=== PATIENT | male | born 1965 | race Caucasian/White ===

== ENCOUNTER 2017-12-07 22:52 | Emergency (ER) | END 2017-12-07 23:24 | disposition left against medical advice (07) ==

== ENCOUNTER 2018-03-26 17:48 | Emergency (ER) | END 2018-03-26 20:00 | disposition home or self-care (01) ==

== ENCOUNTER 2018-07-19 18:43 | Emergency (ER) | END 2018-07-20 01:56 | disposition home or self-care (01) ==

== ENCOUNTER 2018-12-05 11:26 | Emergency (ER) | payer MEDICAID ==
[~2018-12-05] VITALS: Ht 157.5 cm; Wt 92.4 kg
[2018-12-05 11:31] VITALS: Ht 157.5 cm; Wt 92.4 kg
--- NOTE | 2018-12-05 12:27 | ERD ---
ER Documentation Chief Complaint Chief Complaint FELT DIZZY WHEN DRIVING; BILATERAL EAR RINGING HPI 53-year-old male, with history of anxiety and hypertension, presents to the emergency department, complaining of acute onset of dizziness, described as things spinning around, associated with nausea and bilateral ear ringing. The symptoms started 2 days ago. He denies chest pain, no shortness of breath, no blurred vision, no facial weakness, no distal numbness or tingling. ROS All systems reviewed and are negative except as per history of present illness. Medications Home Meds Active Scripts Ondansetron Hcl* (Zofran*) 4 Mg Tablet, 4 MG PO Q8H PRN for NAUSEA AND/OR VOMIT ING, #15 TAB Prov:FITO WATERMAN MD 12/05/18 Hydrochlorothiazide* (Hydrochlorothiazide*) 25 Mg Tab, 12.5 MG PO DAILY, #30 TAB Prov:FITO WATERMAN MD 12/05/18 Allergies Allergies: Coded Allergies: No Known Drug Allergy (Verified Allergy, Mild, 03/26/18) PMhx/Soc The patient reports history of anxiety and hypertension History of Surgery: No Anesthesia Reaction: No Hx Neurological Disorder: No Hx Respiratory Disorders: No Hx Cardiac Disorders: No Hx Psychiatric Problems: No Hx Miscellaneous Medical Probl: No Hx Alcohol Use: No Hx Substance Use: No Hx Tobacco Use: No FmHx Family History: diabetes Physical Exam Vitals Vital Signs Date Temp Pulse Resp B/P (MAP) Pulse Ox O2 O2 Flow FiO2 Time Delivery Rate 12/05/18 97.6 86 18 153/108 96 11:31 (123) Physical Exam Const: No acute distress Head: Atraumatic Eyes: Normal Conjunctiva ENT: Normal External Ears, Nose and Mouth. Neck: Full range of motion. No meningismus. Resp: Clear to auscultation bilaterally Cardio: Regular rate and rhythm, no murmurs Abd: Soft, non tender, non distended. Normal bowel sounds Skin: No petechiae or rashes Back: No midline or flank tenderness Ext: No cyanosis, or edema Neur: Awake and alert Psych: Normal Mood and Affect Result Diagram: 12/05/18 1246 12/05/18 1246 Results 24 hrs Laboratory Tests Test 12/05/18 12:46 White Blood Count 6.9 10^3/ul Red Blood Count 5.49 10^6/ul Hemoglobin 14.3 g/dl Hematocrit 43.7 % Mean Corpuscular Volume 79.6 fl Mean Corpuscular Hemoglobin 26.0 pg Mean Corpuscular Hemoglobin Concent 32.7 g/dl Red Cell Distribution Width 12.7 % Platelet Count 236 10^3/UL Mean Platelet Volume 10.5 fl Immature Granulocytes % 0.400 % Neutrophils % 57.3 % Lymphocytes % 30.2 % Monocytes % 9.2 % Eosinophils % 2.2 % Basophils % 0.7 % Nucleated Red Blood Cells % 0.0 /100WBC Immature Granulocytes # 0.030 10^3/ul Neutrophils # 4.0 10^3/ul Lymphocytes # 2.1 10^3/ul Monocytes # 0.6 10^3/ul Eosinophils # 0.2 10^3/ul Basophils # 0.1 10^3/ul Nucleated Red Blood Cells # 0.0 10^3/ul Sodium Level 141 mmol/L Potassium Level 4.1 mmol/L Chloride Level 104 mmol/L Carbon Dioxide Level 28 mmol/L Anion Gap 9 Blood Urea Nitrogen 13 mg/dl Creatinine 0.76 mg/dl Est Glomerular Filtrat Rate mL/min > 60 mL/min Glucose Level 155 mg/dl Calcium Level 9.1 mg/dl EKG read by me: Rate/Rhythm: Regular rate and rhythm at a rate of 72 Intervals: Normal No acute ST changes. No T wave inversion Impression: No evidence of acute ischemia or arrhythmia Procedures/MDM Vital signs stable, neurovascular exam revealed horizontal nystagmus while the patient was looking straight ahead with mildly abnormal head impulse test. Differential diagnosis include but not limited to dehydration, cardiac arrhythmia, , Mnire's disease, vestibular neuronitis, migraine, vertigo, side effects of the medications, hypoglycemia. Less likely but is still a possibility, intracranial hemorrhage, ischemic stroke, [employer] neoplasm. Pertinent Data: 12 Lead ECG: Sinus rhythm, no ST changes, normal T wave, normal intervals Labs: CBC: normal, BMP: normal kidney function, normal electrolytes. Glucose: normal CT head: Normal Physical examination and clinical presentation consistent most likely with positional vertigo and hypertension. During the ED course the patient remained stable, no new complaints. Results and clinical impression discussed with patient who agrees with management. The patient is stable to be treated outpatient and will be discharged home with instructions to follow up with the primary care provider in the next 48h. If symptoms persist, worsen or new symptoms develop, then patient should return to the ED immediately. Instructions explained and given directly by me to the patient with acknowledgment and demonstrated understanding. Disclaimer: Inadvertent spelling and grammatical errors are likely due to EHR/dictation software use and do not reflect on the overall quality of patient care. Also, please note that the electronic time recorded on this note does not necessarily reflect the actual time of the patient encounter. Departure Diagnosis: Primary Impression: Dizziness Additional Impressions: Positional vertigo Hypertension Condition: Stable Patient Instructions: Possible Causes of Dizziness or Fainting Additional Instructions: Thank you very much for allowing us to participate in your care. Your health and safety is our top priority at [facility]. The evaluation in the emergency department has been done to rule out an acute emergency, therefore, chronic conditions like malignancy or other diseases have not been evaluated; therefore, you need to follow up with a primary care provider in the next 48h. If symptoms persist, worsen or new symptoms develop, then patient should return to the ED immediately. Call your primary care doctor TOMORROW for an appointment during the next 2-4 days and bring all the information provided. Have prescriptions filled and follow precisely the directions on the label. If the symptoms get worse and your provider is unavailable, return to the Emerg ency Department immediately. FITO WATERMAN MD December 05, 2018 12:27
[2018-12-05] MEDS ORDERED: HYDR25TA6 PO (12:42)
[2018-12-05] MEDS ORDERED: ONDA4TAB8 PO (12:43)
[2018-12-05 14:18] VITALS: BP 137/91; PULSE 76; RESP 19
== END 2018-12-05 14:19 | disposition home or self-care (01) ==
LOC: FTE 11:26
DX: I10 Essential (primary) hypertension (principal); R11.0 Nausea
CPT/HCPCS: 70450; 80048; 85025; 93005; Z7502

== ENCOUNTER 2019-01-06 18:29 | Emergency (ER) | payer MEDICAID ==
[~2019-01-06] VITALS: Ht 157.5 cm; Wt 90.9 kg
[~2019-01-06 18:29] MED LIST: HYDR25TA6 PO; ONDA4TAB8 PO
[2019-01-06 18:30] VITALS: BP 148/95; PULSE 85; RESP 18; Ht 157.5 cm; Wt 90.9 kg
[2019-01-06] MEDS ORDERED: HYDR25TA6 PO (19:41)
--- NOTE | 2019-01-06 19:44 | ERD ---
ER Documentation Chief Complaint Chief Complaint MED REFILL, HTN MEDS HPI 53-year-old male presents with a history of hypertension. He was recently initiated treatment with 1 month ago after an episode of anxiety and noted to have elevated blood pressure. He states he feels much better while taking hydrochlorothiazide. He denies chest pain, shortness of breath, deficits, additional complaints. He does not have a primary doctor is requesting a refill of his hydrochlorothiazide. ROS All systems reviewed and are negative except as per history of present illness. Medications Home Meds Active Scripts Hydrochlorothiazide* (Hydrochlorothiazide*) 25 Mg Tab, 25 MG PO DAILY, #90 TAB Prov:PHUC WELSH MD 01/06/19 Ondansetron Hcl* (Zofran*) 4 Mg Tablet, 4 MG PO Q8H PRN for NAUSEA AND/OR VOMITING, #15 TAB Prov:FITO WATERMAN MD 12/05/18 Hydrochlorothiazide* (Hydrochlorothiazide*) 25 Mg Tab, 12.5 MG PO DAILY, #30 TAB Prov:FITO WATERMAN MD 12/05/18 Allergies Allergies: Coded Allergies: No Known Drug Allergy (Verified Allergy, Mild, 03/26/18) PMhx/Soc History of Surgery: No Anesthesia Reaction: No Hx Neurological Disorder: No Hx Respiratory Disorders: No Hx Cardiac Disorders: Yes (htn) Hx Psychiatric Problems: No Hx Miscellaneous Medical Probl: Yes (PRE DIABETIC) Hx Alcohol Use: No Hx Substance Use: No Hx Tobacco Use: No Smoking Status: Never smoker FmHx Family History: No diabetes, No coronary disease, No other Physical Exam Vitals Vital Signs Date Temp Pulse Resp B/P (MAP) Pulse Ox O2 O2 Flow FiO2 Time Delivery Rate 01/06/19 97.9 85 18 148/95 97 18:30 (112) Physical Exam Const: No acute distress Head: Atraumatic Eyes: Normal Conjunctiva ENT: Normal External Ears, Nose and Mouth. Neck: Full range of motion. No meningismus. Resp: Clear to auscultation bilaterally Cardio: Regular rate and rhythm, no murmurs Abd: Soft, non tender, non distended. Normal bowel sounds Skin: No petechiae or rashes Back: No midline or flank tenderness Ext: No cyanosis, or edema Neur: Awake and alert Psych: Normal Mood and Affect Procedures/MDM Patient presents with a history of hypertension. He feels improved and states that his home readings are much better with hydrochlorothiazide. He will be referred for primary care follow-up. We will give him a refill until then. He has no signs or symptoms to suggest endorgan damage or hypertensive emergency, chest pain or shortness of breath or deficits. The patient was stable with no new complaints during the ER course. Clinically, there is no current evidence to suggest meningitis, sepsis, acute abdomen, pneumonia, stroke, acute coronary syndrome, pulmonary embolism, aortic dissection or any other emergent condition appearing to require further evaluation or hospitalization. Patient counseled regarding my diagnostic impression and care plan. Prior to discharge all que stions answered. Pt agrees with treatment plan and understands strict return precautions. Pt is instructed to follow up with primary care provider within 24- 48 hours. Precautionary instructions provided including instructions to return to the ER if not improving or for any worsening or changing symptoms or concerns. Disclaimer: Inadvertent spelling and grammatical errors are likely due to EHR/dictation software use and do not reflect on the overall quality of patient care. Also, please note that the electronic time recorded on this note does not necessarily reflect the actual time of the patient encounter. Departure Diagnosis: Primary Impression: Hypertension Additional Impression: Encounter for medication refill Condition: Stable Patient Instructions: High Blood Pressure (Hypertension) [facility] Usted se johnson hecho un examen mdico de control que le indica que no est en rocio condicin que requiera tratamiento urgente en el Departamento de Emergencia. Un estudio ms profundo y el tratamiento de byrd condicin pueden esperar sin ningn riesgo hasta que usted sea atendida/o en el consultorio de byrd mdico o rocio clnica. Es responsabilidad suya arreglar rocio dhiraj para el seguimiento del aurora. MANEJO DE CONDICIONES NO URGENTES EN EL FUTURO 1) Si usted tiene un mdico de atencin primaria: Usted debera llamar a byrd mdico de atencin primaria antes de venir al departamento de emergencia. Despus de las horas de consultorio, byrd doctor o byrd asociado/a est disponible por telfono. El mdico o enfermero de roger en el servicio telefnico puede asesorarle por magi medio para atender el problema, o c aso contrario se puede programar rocio dhiraj. 2) Si usted no tiene un mdico de atencin primaria: Llame al mdico o clnica de referencia que aparece abajo geo las horas de consultorio para hacer rocio dhiraj para que le vean. CLINICAS: [facility] [id number] [facility] [phone] [facility] [phone] [facility] [phone] [place] [id number] [phone] [facility] [phone] [address] Additional Instructions: See primary doctor for further evaluation and treatment. Recheck otherwise for chest pain, shortness of breath, new worsening symptoms. PHUC WELSH MD Jan 06, 2019 19:44
== END 2019-01-06 20:00 | disposition home or self-care (01) ==
LOC: FTE 18:29
DX: I10 Essential (primary) hypertension (principal)
CPT/HCPCS: 99281

== ENCOUNTER 2019-04-01 16:32 | Emergency (ER) | payer MEDICAID ==
[~2019-04-01] VITALS: Ht 157.5 cm; Wt 80.0 kg
[2019-04-01 16:35] VITALS: BP 133/70; PULSE 78; RESP 18; Ht 157.5 cm; Wt 80.0 kg
== END 2019-04-01 17:57 | disposition home or self-care (01) ==
LOC: FTE 16:32
DX: Z76.0 Encounter for issue of repeat prescription (principal); I10 Essential (primary) hypertension
CPT/HCPCS: 99281